=== PATIENT | male | born 1970 | race Caucasian/White ===

== ENCOUNTER 2022-07-15 07:52 | Emergency (ER) | payer MEDICAID ==
[~2022-07-15] VITALS: Ht 167.6 cm; Wt 72.7 kg
[2022-07-15] MEDS: morphine 4 MG/ML inj SYRINge IV ONE (08:15)
--- NOTE | 2022-07-15 08:24 | NUR ---
covid collected at this time
[2022-07-15] MEDS: LORazepam 2 mg/ml vial IV ONE (08:34)
[2022-07-15] MEDS: normal saline 1000ML IV soln IVB ONE (08:34)
[2022-07-15] MEDS: midazolam 1 mg/ML 2ml injection IV ONE ×2 (08:40→09:17)
[2022-07-15] MEDS ORDERED: LIDOcaine 2% 5ml vial 0 MG in normal saline 100ml IV soln 100 ML IV ONE (08:45)
[2022-07-15] MEDS: HYDROmorphone 1 mg/ml syringe IV ONE (08:56)
[2022-07-15 09:10] LABS: BASOPHILS # (AUTO) 0.1 X10'3 (0-0.2); BASOPHILS % (AUTO) 0.9 % (0-1); EOSINOPHILS # (AUTO) 0.2 X10'3 (0-0.9); HEMATOCRIT 40.3 % (42.0-52.0); LYMPHOCYTES # (AUTO) 2.9 X10'3 (1.1-4.8); LYMPHOCYTES % (AUTO) 28.6 % (21-51); MEAN CORPUSCULAR HEMOGLOBIN 30.9 PG (27.0-31.0); MEAN CORPUSCULAR HGB CONC 34.7 g/dL (33.0-36.5); MEAN PLATELET VOLUME 9.7 FL (7.4-10.4); MONOCYTES # (AUTO) 0.9 X10'3 (0-0.9); MONOCYTES % (AUTO) 8.7 % (2-12); NEUTROPHILS # (AUTO) 6.2 X10'3 (1.8-7.7); NEUTROPHILS % (AUTO) 59.8 % (42-75); PLATELET COUNT 230 X10'3 (140-440); RED BLOOD COUNT 4.53 X10'6 (4.70-6.10); RED CELL DISTRIBUTION WIDTH 13.8 % (11.5-14.5); WHITE BLOOD COUNT 10.3 X10'3 (4.5-11.0)
[2022-07-15] MEDS: ketamine 50 mg/ml 10ml vial IM ONE (09:24)
[2022-07-15 09:25] LABS: APTT 30 SECONDS (22-32)
--- NOTE | 2022-07-15 09:25 | NUR ---
Time out at this time, patient and procedure verified. storage battery charger, Dr. Aguilar, Dr. Lang and RT at bedside
--- NOTE | 2022-07-15 09:25 | NUR ---
Dr. Aguilar at bedside. Verbal consent obtained for mod sedation to remove ring from pt's penis. RT called to bedside, Dr. Lang also at bedside. PT placed on 10L NC.
[2022-07-15 09:28] LABS: ALANINE AMINOTRANSFERASE 25 U/L (12-78); ALBUMIN 3.5 G/DL (3.4-5.0); ALKALINE PHOSPHATASE 83 IU/L (46-116); ANION GAP 7 (8-16); ASPARTATE AMINO TRANSFERASE 19 U/L (10-37); BILIRUBIN,TOTAL 0.4 MG/DL (0.1-1.0); BLOOD UREA NITROGEN 15 MG/DL (7-18); BUN/CREATININE RATIO 14.6 (5.4-32.0); CHLORIDE 109 MMOL/L (99-107); CREATININE 1.03 MG/DL (0.60-1.10); GLUCOSE 106 MG/DL (70-104); MAGNESIUM 1.7 MG/DL (1.5-2.4); POTASSIUM 3.5 MMOL/L (3.5-5.1); SODIUM 143 MMOL/L (135-145); TOTAL CARBON DIOXIDE 26.9 MMOL/L (24-32); eGFR 76 ML/MIN
[2022-07-15] MEDS: propofol 1000mg/100ml bottle 0 ML IV ONE (09:35)
[2022-07-15] MEDS: propofol inj 20 ML IV ONE (09:36)
--- NOTE | 2022-07-15 09:49 | NUR ---
50mg IVP propofol given by dr. adam
--- NOTE | 2022-07-15 09:50 | NUR ---
0950- 25mg IVP propfol given by dr. adam 0955- ring removed by Dr. Aguilar, 16fr lopes placed
--- NOTE | 2022-07-15 10:00 | NUR ---
Dr. Aguilar at bedside for removal of ring
[2022-07-15] MEDS: LIDOcaine 2% (20mg/ml) 5ml vial IV ONE (10:01)
--- NOTE | 2022-07-15 10:17 | NUR ---
patient still sedated at this time, vitals wnl
--- NOTE | 2022-07-15 11:52 | NUR ---
patient awake at this time, back to baseline
[2022-07-15 13:47] VITALS: BP 155/97
--- NOTE | 2022-07-15 14:48 | NUR ---
patient has no complaints at this time, resting in bed
--- NOTE | 2022-07-15 15:15 | NUR ---
Per ER MD patient to have 400ml sterile NS irrigated into bladder and lopes removed in order to have patient urinate on his own. lopes removed at this time and paitent at bedside urinating in urinal
[2022-07-15] MEDS ORDERED: CEPH250T PO (15:40)
[2022-07-15] MEDS: ceFAZolin/D5W- 1GM premix 50 ML IV SCH (16:00)
== END 2022-07-15 16:21 | disposition home or self-care (01) ==
LOC: ER 07:52
DX: S30.842A External constriction of penis, initial encounter (principal); Z20.822 Contact with and (suspected) exposure to COVID-19; N48.89 Other specified disorders of penis; F17.200 Nicotine dependence, unspecified, uncomplicated; Z79.2 Long term (current) use of antibiotics; X58.XXXA Exposure to other specified factors, initial encounter; Y93.89 Activity, other specified; Y92.89 Other specified places as the place of occurrence of the external cause; Y99.8 Other external cause status
CPT/HCPCS: 36415; 80053; 83735; 85025; 85610; 85730; 87811; 93005; 96361; 96365; 96375; 96376; 99152; 99153; 99291; 99292; J0690; J1170; J2250; J2270; J2704; J3490; J7030; 96372; A4615

== ENCOUNTER 2023-06-09 19:29 | Inpatient (IN) | payer MEDICAID, MEDICARE ==
[~2023-06-09] VITALS: Ht 175.3 cm; Wt 58.6 kg
[~2023-06-09 19:29] MED LIST: CEPH250T PO
[2023-06-09] MEDS ORDERED: diphenhydrAMINE 50 mg/ml inj ONE (19:30)
[2023-06-09] MEDS ORDERED: haloperidol lactate 5mg/ml inj ONE (19:31)
[2023-06-09] MEDS ORDERED: LORazepam 2 mg/ml vial ONE (19:31)
[2023-06-09] MEDS ORDERED: normal saline 1000ML IV soln IV ONE (19:40)
[2023-06-09] MEDS ORDERED: ipratropium/albuterol 3ml nebule NEB ONE (19:50)
--- NOTE | 2023-06-09 19:55 | NUR ---
Pt unable to come to CT, he is uncoopertive and combative. Nurse will call when patient cam hold still.
[2023-06-09 20:03] LABS: ABG BASE EXCESS -10.1 mmol/L (-2.0-2.0); ABG OXYGEN SATURATION 84.4 % (94-97); ABG PCO2 (T) 26.9 mmHg (35.0-48.0); ABG PO2 (T) 53.3 mmHg (75.0-100.0); FMetHb 0.4 % (0.0-1.5); FO2Hb 83.2 % (94-97); PATIENT TEMPERATURE 36.9; TOTAL HEMOGLOBIN 15.6 G/dl (14.0-17.9)
[2023-06-09 20:18] LABS: BASOPHILS % (AUTO) 0.2 % (0-1); EOSINOPHILS % (AUTO) 0.2 % (0-6); HEMATOCRIT 45.3 % (42.0-52.0); HEMOGLOBIN 15.1 g/dl (14.0-17.9); LYMPHOCYTES # (AUTO) 0.9 X10'3 (1.1-4.8); LYMPHOCYTES % (AUTO) 4.3 % (21-51); MEAN CORPUSCULAR HEMOGLOBIN 29.4 PG (27.0-31.0); MEAN CORPUSCULAR HGB CONC 33.2 g/dL (33.0-36.5); MEAN CORPUSCULAR VOLUME 88.5 FL (78-98); MEAN PLATELET VOLUME 6.9 FL (7.4-10.4); MONOCYTES # (AUTO) 0.6 X10'3 (0-0.9); MONOCYTES % (AUTO) 2.8 % (2-12); NEUTROPHILS # (AUTO) 19.3 X10'3 (1.8-7.7); NEUTROPHILS % (AUTO) 92.5 % (42-75); PLATELET COUNT 360 X10'3 (140-440); RED BLOOD COUNT 5.12 X10'6 (4.70-6.10); RED CELL DISTRIBUTION WIDTH 14.2 % (11.5-14.5); WHITE BLOOD COUNT 20.8 X10'3 (4.5-11.0)
[2023-06-09 20:20] LABS: ALANINE AMINOTRANSFERASE 35 U/L (12-78); ALBUMIN 4.3 G/DL (3.4-5.0); ALBUMIN/GLOBULIN RATIO 1.4 (1.1-1.5); ALKALINE PHOSPHATASE 93 IU/L (46-116); ANION GAP 23 (8-16); ASPARTATE AMINO TRANSFERASE 36 U/L (10-37); BILIRUBIN,TOTAL 0.6 MG/DL (0.1-1.0); BLOOD UREA NITROGEN 23 MG/DL (7-18); BUN/CREATININE RATIO 13.5 (10.0-20.0); CALCIUM 8.9 MG/DL (8.5-10.1); CHLORIDE 105 MMOL/L (99-107); CREATININE 1.71 MG/DL (0.60-1.10); GLUCOSE 109 MG/DL (70-104); POTASSIUM 3.8 MMOL/L (3.5-5.1); SODIUM 144 MMOL/L (135-145); TOTAL CARBON DIOXIDE 16.5 MMOL/L (24-32); TOTAL PROTEIN 7.4 G/DL (6.4-8.2); eGFR 42 ML/MIN
[2023-06-09] MEDS ORDERED: diphenhydrAMINE 50 mg/ml inj IM ONE (20:25)
[2023-06-09] MEDS ORDERED: LORazepam 2 mg/ml vial IM ONE (20:25)
[2023-06-09] MEDS ORDERED: haloperidol lactate 5mg/ml inj IM ONE (20:25)
[2023-06-09 20:26] LABS: LACTIC SEPSIS 9.4 MMOL/L (0.4-2.0)
[2023-06-09 20:28] LABS: ETHANOL < 0.010 GM/DL (0.0-0.010); MAGNESIUM 3.2 MG/DL (1.5-2.4)
[2023-06-09] MEDS ORDERED: normal saline 1000ML IV soln IVB ONE (20:35)
[2023-06-09] MEDS ORDERED: CefTRIAXone 2gm/D5W 50ml BAG 50 ML IV ONE (20:35)
[2023-06-09] MEDS ORDERED: naloxone 2mg/2ml inj IV STA (21:02)
[2023-06-09 21:15] LABS: CREATINE KINASE 374 U/L (39-308)
[2023-06-09 21:22] LABS: CLARITY,URINE SLIGHTLY CLOUDY (Clear); COLOR,URINE YELLOW (Yellow); GLUCOSE, URINE NEGATIVE (Neg); KETONES,URINE NEGATIVE (Neg); LEUKOCYTE ESTERASE ,URINE NEGATIVE (Neg); NITRITES, URINE NEGATIVE (Neg); OCCULT BLOOD,URINE MODERATE (Neg); PH,URINE 5.5 (4.8-8.0); PROTEIN,URINE 100 mg/dl (Neg); UROBILINOGEN,URINE 0.2 E.U/dL (0.2-1.0)
[2023-06-09 21:31] LABS: URINE AMPHETAMINE SCREEN POSITIVE (Neg); URINE BARBITUATE SCREEN NEGATIVE (Neg); URINE BENZODIAZEPINES SCREEN NEGATIVE (Neg); URINE CANNABINOID SCREEN NEGATIVE (Neg); URINE COCAINE SCREEN NEGATIVE (Neg); URINE METHADONE SCREEN NEGATIVE (Neg); URINE OPIATE SCREEN NEGATIVE (Neg); URINE PHENCYCLIDINE SCREEN NEGATIVE (Neg)
[2023-06-09 21:46] LABS: UA COLLECTION TYPE FOLEY CATH
[2023-06-09 21:51] LABS: RBC,URINE NONE SEEN /HPF (0-2)
[2023-06-09 21:52] LABS: BACTERIA,URINE 1+ /HPF (Neg); MUCUS STRANDS FEW /LPF (Neg); RENAL CELLS, URINE FEW /HPF; SQUAMOUS EPITHELIAL CELL,UR NONE SEEN /LPF (FEW)
[2023-06-09 21:55] LABS: AMORPHOUS PHOSPHATES 2+; COARSE GRANULAR CAST 0-3 /LPF (NEGATIVE); FINE GRANULAR CAST 0-3 /LPF (NEGATIVE)
[2023-06-09 21:56] LABS: CELLULAR CAST 0-4 /LPF (NEGATIVE)
[2023-06-09] MEDS ORDERED: rocuronium 10mg/ml inj IV STA (22:05)
[2023-06-09] MEDS ORDERED: etomidate 2mg/ml inj. IV STA (22:05)
--- NOTE | 2023-06-09 22:11 | NUR ---
Manoj Jaramillo [phone] Analisa will be calling back:
[2023-06-09 22:13] VITALS: BP 100/66
--- NOTE | 2023-06-09 22:13 | NUR ---
multiple staff in to change him, he is full of liquid bm. Pants thrown out. Cleaned out pockets and belt, inhaler a chacon put into a clothes bag. So much liquid bm that a rectal tube was successfully placed per Lashonda Greenfield RN. Dr Leonard in assisting with cleaning him. Linen change x 3 until rectal tube placed. Sample collected. Pt doesn't respond other than clenching and appearing to posture. RT notified and MD preparing to intubate
--- NOTE | 2023-06-09 22:22 | NUR ---
Analisa Padilla: [phone] His girlfriend: call anytime She states she is in [facility] right now, she stopped by his house this morning and he wasn't home. She states he has severe COPD only 30% of his lung capacity. Uses 3 inhalers. Not on any antibiotics this past month. Does know he was placed on prednisone recently.
[2023-06-09 22:28] LABS: ABG BASE EXCESS -6.6 mmol/L (-2.0-2.0); ABG HCO3 19.4 mmol/L (22.0-26.0); ABG OXYGEN SATURATION 99.2 % (94-97); ABG PCO2 (T) 40.4 mmHg (35.0-48.0); ABG PO2 (T) 340.4 mmHg (75.0-100.0); ALLEN'S TEST POSITIVE; FCOHb 0.6 % (0.0-3.9); FMetHb 0.5 % (0.0-1.5); FO2Hb 98.1 % (94-97); PATIENT TEMPERATURE 36.9; PEEP 5 cm H2O; RESPIRATORY RATE 20 b/min; TIDAL VOLUME 450 mL; TOTAL HEMOGLOBIN 14.6 G/dl (14.0-17.9)
[2023-06-09] MEDS ORDERED: levetiracetam inj 1,000 MG in normal saline 100ml IV soln 90 ML IV STA (22:36)
[2023-06-09] MEDS ORDERED: levetiracetam inj 1,000 MG in normal saline 100ml IV soln 100 ML IV STA (22:40)
--- NOTE | 2023-06-09 22:44 | NUR ---
Friend called in. He was in [place] at a house since last night he was really having alot of trouble breathing. Today alot of albuterol as he continued to having trouble breathing and he was also doing nebulizer treatment. She thinks he wasn't doing it right, he was just 'hitting it' instead of having it in his mouth continually. She states he didn't have any diarrhea at her house today. They all ate the same thing and everyone else is fine. [phone]: Camille
--- NOTE | 2023-06-09 22:51 | NUR ---
d/c 18fr lopes and placed 16fr temp lopes.
[2023-06-09] MEDS ORDERED: propofol 1000mg/100ml bottle 100 ML IV ONE (23:31)
[2023-06-09] MEDS: propofol 1000mg/100ml bottle 100 ML IV SCH ×2 (23:48→23:49)
[2023-06-09] MEDS ORDERED: ondansetron/PF 4mg/2ml inj IV PRN (23:50)
[2023-06-09] MEDS ORDERED: acetaminophen 325mg tablet PO PRN (23:50)
[2023-06-10] VITALS (31 sets, daily range): BP systolic 93–169; BP diastolic 65–104
[2023-06-10 00:14] LABS: TRIGLYCERIDES 62 MG/DL (20-135)
[2023-06-10 00:59] LABS: OCCULT BLOOD STOOL POSITIVE (Neg)
[2023-06-10 02:39] LABS: ALANINE AMINOTRANSFERASE 36 U/L (12-78); ALBUMIN 3.8 G/DL (3.4-5.0); ALBUMIN/GLOBULIN RATIO 1.4 (1.1-1.5); ALKALINE PHOSPHATASE 79 IU/L (46-116); ANION GAP 16 (8-16); ASPARTATE AMINO TRANSFERASE 53 U/L (10-37); BILIRUBIN,TOTAL 0.5 MG/DL (0.1-1.0); BLOOD UREA NITROGEN 20 MG/DL (7-18); BUN/CREATININE RATIO 15.6 (10.0-20.0); CALCIUM 7.9 MG/DL (8.5-10.1); CHLORIDE 110 MMOL/L (99-107); CREATININE 1.28 MG/DL (0.60-1.10); GLUCOSE 96 MG/DL (70-104); MAGNESIUM 2.5 MG/DL (1.5-2.4); POTASSIUM 3.5 MMOL/L (3.5-5.1); SODIUM 148 MMOL/L (135-145); TOTAL CARBON DIOXIDE 22.2 MMOL/L (24-32); TOTAL PROTEIN 6.6 G/DL (6.4-8.2); eGFR 59 ML/MIN
[2023-06-10 02:48] LABS: BASOPHILS % (AUTO) 0.1 % (0-1); EOSINOPHILS % (AUTO) 0.1 % (0-6); HEMATOCRIT 45.6 % (42.0-52.0); HEMOGLOBIN 15.1 g/dl (14.0-17.9); LYMPHOCYTES # (AUTO) 1.4 X10'3 (1.1-4.8); LYMPHOCYTES % (AUTO) 6.6 % (21-51); MEAN CORPUSCULAR HEMOGLOBIN 29.6 PG (27.0-31.0); MEAN CORPUSCULAR VOLUME 89.6 FL (78-98); MEAN PLATELET VOLUME 7.1 FL (7.4-10.4); MONOCYTES # (AUTO) 1.5 X10'3 (0-0.9); MONOCYTES % (AUTO) 6.8 % (2-12); NEUTROPHILS # (AUTO) 18.6 X10'3 (1.8-7.7); NEUTROPHILS % (AUTO) 86.4 % (42-75); PLATELET COUNT 286 X10'3 (140-440); RED BLOOD COUNT 5.09 X10'6 (4.70-6.10); RED CELL DISTRIBUTION WIDTH 14.5 % (11.5-14.5); WHITE BLOOD COUNT 21.5 X10'3 (4.5-11.0)
[2023-06-10 03:08] LABS: ABG BASE EXCESS -5.8 mmol/L (-2.0-2.0); ABG HCO3 19.2 mmol/L (22.0-26.0); ABG OXYGEN SATURATION 96.9 % (94-97); ABG PCO2 (T) 37.8 mmHg (35.0-48.0); ABG PO2 (T) 102.1 mmHg (75.0-100.0); ALLEN'S TEST POSITIVE; FCOHb 0.1 % (0.0-3.9); FMetHb 0.5 % (0.0-1.5); FO2Hb 96.3 % (94-97); PATIENT TEMPERATURE 37.9; PEEP 5 cm H2O; RESPIRATORY RATE 20 b/min; TIDAL VOLUME 450 mL; TOTAL HEMOGLOBIN 15.6 G/dl (14.0-17.9)
[2023-06-10] MEDS: propofol 1000mg/100ml bottle 100 ML IV SCH (06:42)
[2023-06-10] MEDS: piperacillin/tazo 3.375gm/50ml 50 ML IV SCH ×2 (07:14→16:11)
[2023-06-10] MEDS: enoxaparin 40mg/0.4ml syringe SUBCUT SCH (07:16)
[2023-06-10] MEDS: rifaximin 550mg tablet PO SCH ×2 (07:16→19:42)
[2023-06-10] MEDS: pantoprazole 40mg Tablet.DR PO SCH (07:16)
[2023-06-10] MEDS ORDERED: flumazenil 0.1 mg/ml inj. IV ONE (08:00)
[2023-06-10] MEDS ORDERED: etomidate 2mg/ml inj. ONE (08:00)
[2023-06-10 08:40] LABS: C DIFF SPECIMEN=DIARRHEA? ACCEPTABLE; C DIFFICILE TOXINS A&B NEGATIVE (Neg)
--- NOTE | 2023-06-10 10:05 | NUR ---
Dr. Wilson in to see pt. Notified of pin point pupils, agitation when aroused and low urine output.
--- NOTE | 2023-06-10 10:08 | NUR ---
Initial: Pt intubated admit DX toxic and metabolic encephalopathy positive for meth, sepsis possibly from aspiration PNA, acute respiratory failure, elevated lactic acid possibly from seizure, acute renal failure, and diarrhea c.diff negative per EMR. Currently NPO w/ OG in place MAP 83 this AM; TF recs below in case prolonged intubation considering Propofol currently running at 17.49ml/hr in EMR providing 462 kcals/day. Rectal tube -200ml since admit per EMR. Will continue to follow. Rec: 1. IF TF considering Propofol at 17.49ml/hr providing 462 kcals/day; Vital HP at 50ml/hr would provide 1200ml volume/day, 1200 kcals, 1003ml water, and 105g protein. 2. IF TF; additional water flush 100ml Q4H 3. IF TF; PALB Q / 4. bowel care per rx 5. daily scaled wt 6. upon extubation; advance diet as medically indicated to regular Addendum: 06/10/23 at [address] Amended: Links added.
[2023-06-10] MEDS: dextrose 5%-water 1,000 ML IV SCH ×2 (10:11→22:11)
[2023-06-10] MEDS ORDERED: dextrose 5%-water 1,000 ML IV SCH (11:40)
--- NOTE | 2023-06-10 11:49 | NUR ---
organic section technical lead paged for cont. EEG. Will be here in 30 mins approx.
[2023-06-10] MEDS: CefTRIAXone/D5W-Rocephin 1gm 50 ML IV SCH (12:46)
--- NOTE | 2023-06-10 12:51 | NUR ---
EEG being set up now.
[2023-06-10] MEDS: lactulose 20gm/30ml cup OGT SCH ×2 (13:21→19:42)
--- NOTE | 2023-06-10 15:16 | NUR ---
Pt. awake and following commands. Dr. Wilson aware. Pt. placed on CPAP on the vent.
--- NOTE | 2023-06-10 15:56 | NUR ---
Pt. extubated to nasal canula after obtaining passing weaning parameters and being on CPAP vent mode for one hour. Pt. stable.
--- NOTE | 2023-06-10 17:27 | NUR ---
Dr. Wilson aware of pt's high BP.
[2023-06-10] MEDS: acetaminophen 325mg tablet PO PRN (22:41)
[2023-06-11] VITALS (16 sets, daily range): BP systolic 105–157; BP diastolic 63–104
[2023-06-11] MEDS: piperacillin/tazo 3.375gm/50ml 50 ML IV SCH ×2 (00:09→08:09)
[2023-06-11] MEDS: lactulose 20gm/30ml cup OGT SCH ×2 (01:26→08:07)
[2023-06-11] MEDS ORDERED: potassium Cl 40MEQ/1/2NS 520ml 520 ML IV PRN ×2 (03:00)
[2023-06-11] MEDS: K, MAG and/or Phos replacement - Verify level? MC SCH ×2 (03:00→08:35)
[2023-06-11] MEDS ORDERED: magnesium Cl slow-release 64mg tablet PO PRN (03:00)
[2023-06-11] MEDS ORDERED: magnesium 4gm in 100ml NS 100 ML IV PRN (03:00)
[2023-06-11] MEDS ORDERED: magnesium 2GM in 50ml NS 50 ML IV PRN (03:00)
[2023-06-11] MEDS ORDERED: potassium Cl 20 mEq SR tablet PO PRN (03:00)
[2023-06-11 06:13] LABS: ALANINE AMINOTRANSFERASE 32 U/L (12-78); ALBUMIN 3.1 G/DL (3.4-5.0); ALKALINE PHOSPHATASE 69 IU/L (46-116); ANION GAP 14 (8-16); ASPARTATE AMINO TRANSFERASE 50 U/L (10-37); BLOOD UREA NITROGEN 16 MG/DL (7-18); CALCIUM 7.8 MG/DL (8.5-10.1); CHLORIDE 104 MMOL/L (99-107); GLUCOSE 114 MG/DL (70-104); MAGNESIUM 2.2 MG/DL (1.5-2.4); PHOSPHORUS 2.8 MG/DL (2.3-4.5); SODIUM 137 MMOL/L (135-145); TOTAL CARBON DIOXIDE 19.2 MMOL/L (24-32); TOTAL PROTEIN 6.1 G/DL (6.4-8.2); eGFR 78 ML/MIN
[2023-06-11 06:30] LABS: BASOPHILS % (AUTO) 0.2 % (0-1); EOSINOPHILS # (AUTO) 0.1 X10'3 (0-0.9); EOSINOPHILS % (AUTO) 0.4 % (0-6); HEMATOCRIT 47.7 % (42.0-52.0); HEMOGLOBIN 15.7 g/dl (14.0-17.9); LYMPHOCYTES # (AUTO) 2.3 X10'3 (1.1-4.8); LYMPHOCYTES % (AUTO) 10.8 % (21-51); MEAN CORPUSCULAR HEMOGLOBIN 29.7 PG (27.0-31.0); MEAN CORPUSCULAR HGB CONC 32.9 g/dL (33.0-36.5); MEAN CORPUSCULAR VOLUME 90.1 FL (78-98); MEAN PLATELET VOLUME 7.4 FL (7.4-10.4); MONOCYTES # (AUTO) 1.3 X10'3 (0-0.9); MONOCYTES % (AUTO) 6.1 % (2-12); NEUTROPHILS # (AUTO) 17.6 X10'3 (1.8-7.7); NEUTROPHILS % (AUTO) 82.5 % (42-75); PLATELET COUNT 216 X10'3 (140-440); RED CELL DISTRIBUTION WIDTH 14.5 % (11.5-14.5); WHITE BLOOD COUNT 21.4 X10'3 (4.5-11.0)
--- NOTE | 2023-06-11 06:31 | NUR ---
Patient in room ICU 2044. I have received report from Dayana SAXENA and had the opportunity to ask questions and assume patient care.
[2023-06-11] MEDS: pantoprazole 40mg Tablet.DR PO SCH (08:07)
[2023-06-11] MEDS: rifaximin 550mg tablet PO SCH (08:07)
[2023-06-11] MEDS: enoxaparin 40mg/0.4ml syringe SUBCUT SCH (08:08)
[2023-06-11] MEDS: CefTRIAXone/D5W-Rocephin 1gm 50 ML IV SCH (08:09)
--- NOTE | 2023-06-11 10:45 | NUR ---
Rounds note, patient presented by Dr. Mirza. Labs, lines, and drips addressed. Abx coverage to be changed by MD, patient has orders to transfer off this floor no tele monitor. D/C D5w and encourage PO intake. D/C lopes and wean off O2
--- NOTE | 2023-06-11 10:49 | NUR ---
F/u 06/11: Pt extubated yesterday advanced to clear liquids now to start pureed/thin WL today due to lack of teeth per [employer] recs. Pt ate all of clears per RN at rounds. Will monitor for PO trends and nutrition intervention needs. Rec: 1. Continue pureed/thin diet per [employer]; advance as medically indicated to regular 2. monitor PO trends for ONS needs 3. weekly wt Addendum: 06/11/23 at [address] Amended: Links added.
[2023-06-11] MEDS ORDERED: BUDE10.26 IH (15:08)
[2023-06-11] MEDS ORDERED: ALBU17AE26 IH (15:09)
[2023-06-11] MEDS ORDERED: TIOT4MIS2 INH (15:09)
--- NOTE | 2023-06-11 15:17 | NUR ---
lopes D/C balloon intact
[2023-06-11] MEDS: DOXYCYCLINE 100MG CAPSULE PO SCH (17:35)
[2023-06-11] MEDS ORDERED: albuterol 2.5 MG/3 ML nebule NEB PRN (18:10)
[2023-06-11] MEDS: acetaminophen 325mg tablet PO PRN (20:21)
[2023-06-11] MEDS: levetiracetam 250mg tablet PO SCH (20:22)
[2023-06-11] MEDS: budesonide 0.5mg/2ml UD nebule IH SCH (20:45)
[2023-06-11] MEDS: ipratropium/albuterol 3ml nebule NEB SCH (20:45)
[2023-06-11] MEDS ORDERED: ipratropium 0.5 MG/2.5ML nebule NEB SCH (21:00)
[2023-06-11] MEDS ORDERED: albuterol 2.5 MG/3 ML nebule NEB SCH (21:00)
[2023-06-11] MEDS: lactulose 20gm/30ml cup PO SCH (23:36)
[2023-06-12] MEDS: ipratropium/albuterol 3ml nebule NEB SCH ×2 (02:39→09:22)
[2023-06-12 03:54] VITALS: BP 132/87
--- NOTE | 2023-06-12 04:31 | NUR ---
rectal tube d/c'd after balloon deflated - pt still denies need to void - will continue to monitor
[2023-06-12 06:18] LABS: BASOPHILS % (AUTO) 0.2 % (0-1); EOSINOPHILS # (AUTO) 0.1 X10'3 (0-0.9); EOSINOPHILS % (AUTO) 0.8 % (0-6); HEMATOCRIT 42.2 % (42.0-52.0); HEMOGLOBIN 14.1 g/dl (14.0-17.9); LYMPHOCYTES # (AUTO) 1.7 X10'3 (1.1-4.8); LYMPHOCYTES % (AUTO) 10.8 % (21-51); MEAN CORPUSCULAR HEMOGLOBIN 29.3 PG (27.0-31.0); MEAN CORPUSCULAR HGB CONC 33.4 g/dL (33.0-36.5); MEAN CORPUSCULAR VOLUME 87.8 FL (78-98); MEAN PLATELET VOLUME 7.3 FL (7.4-10.4); MONOCYTES # (AUTO) 0.9 X10'3 (0-0.9); MONOCYTES % (AUTO) 5.4 % (2-12); NEUTROPHILS # (AUTO) 13.4 X10'3 (1.8-7.7); NEUTROPHILS % (AUTO) 82.8 % (42-75); PLATELET COUNT 259 X10'3 (140-440); RED BLOOD COUNT 4.81 X10'6 (4.70-6.10); RED CELL DISTRIBUTION WIDTH 14.2 % (11.5-14.5); WHITE BLOOD COUNT 16.2 X10'3 (4.5-11.0)
[2023-06-12 06:28] LABS: ALANINE AMINOTRANSFERASE 29 U/L (12-78); ALBUMIN 2.9 G/DL (3.4-5.0); ALKALINE PHOSPHATASE 62 IU/L (46-116); ANION GAP 12 (8-16); ASPARTATE AMINO TRANSFERASE 24 U/L (10-37); BILIRUBIN,TOTAL 0.6 MG/DL (0.1-1.0); BLOOD UREA NITROGEN 11 MG/DL (7-18); BUN/CREATININE RATIO 12.9 (10.0-20.0); CALCIUM 8.1 MG/DL (8.5-10.1); CHLORIDE 103 MMOL/L (99-107); CREATININE 0.85 MG/DL (0.60-1.10); GLUCOSE 82 MG/DL (70-104); MAGNESIUM 1.6 MG/DL (1.5-2.4); POTASSIUM 3.1 MMOL/L (3.5-5.1); SODIUM 139 MMOL/L (135-145); TOTAL CARBON DIOXIDE 23.9 MMOL/L (24-32); TOTAL PROTEIN 5.9 G/DL (6.4-8.2); eGFR > 90 ML/MIN
--- NOTE | 2023-06-12 06:45 | NUR ---
Problems reprioritized. Patient report given, questions answered & plan of care reviewed with Dayana SAXENA.
[2023-06-12 08:00] VITALS: BP 131/87
[2023-06-12] MEDS: lactulose 20gm/30ml cup PO SCH (08:00)
--- NOTE | 2023-06-12 08:03 | NUR ---
spoke to Dr. Gomez in regards to patients morning meds, stated to stop lactulose
[2023-06-12] MEDS: levetiracetam 250mg tablet PO SCH (08:11)
[2023-06-12] MEDS: pantoprazole 40mg Tablet.DR PO SCH (08:11)
[2023-06-12] MEDS: DOXYCYCLINE 100MG CAPSULE PO SCH (08:11)
[2023-06-12] MEDS: enoxaparin 40mg/0.4ml syringe SUBCUT SCH (08:11)
[2023-06-12] MEDS: K, MAG and/or Phos replacement - Verify level? MC SCH (08:35)
[2023-06-12] MEDS: budesonide 0.5mg/2ml UD nebule IH SCH (09:22)
[2023-06-12 12:00] VITALS: BP 133/71
--- NOTE | 2023-06-12 13:19 | NUR ---
WOC note: WOC in for skin assessment. Leesa, primary nurse at the bedside stated the wound care consult should be canceled. The patient is ambulatory and has no skin breakdown noted. I did look at his buttocks when he was up with PT and indeed, he has no breakdown, rashes or moisture. WOC consult canceled.
[2023-06-12] MEDS ORDERED: DOXY-224 PO (13:39)
[2023-06-12] MEDS ORDERED: LEVE500T PO (13:39)
[2023-06-12] MEDS ORDERED: POTA-207 PO (13:39)
--- NOTE | 2023-06-12 14:27 | NUR ---
PIV x2 d/c canula intact, patients discharge papers signed and copies obtained for permanent chart records
[2023-06-13 18:32] LABS: HEPATITIS C VIRUS ANTIBODY Non Reactive (Non Reactive)
== END 2023-06-12 14:18 | disposition home or self-care (01) | DRG 720 ==
LOC: ER 19:30 → EDBD 23:50 → ED HOLD 23:50 → ICU 2S 06-10 00:11
PROVIDERS: ADMIT Surgery Surgical Critical Care; ATTEND Surgery Surgical Critical Care
PROC: 5A1935Z Respiratory Ventilation, Less than 24 Consecutive Hours (ICD-10-PCS; principal; 2023-06-10)
PROC: 0BH18EZ Insertion of Endotracheal Airway into Trachea, Via Natural or Artificial Opening Endoscopic (ICD-10-PCS; 2023-06-10)
DX: A41.9 Sepsis, unspecified organism (principal); J96.01 Acute respiratory failure with hypoxia; J69.0 Pneumonitis due to inhalation of food and vomit; N17.0 Acute kidney failure with tubular necrosis; G92.8 Other toxic encephalopathy; E86.0 Dehydration; E87.0 Hyperosmolality and hypernatremia; G40.909 Epilepsy, unspecified, not intractable, without status epilepticus; J44.1 Chronic obstructive pulmonary disease with (acute) exacerbation; K74.60 Unspecified cirrhosis of liver
CPT/HCPCS: 36415; 36600; 70450; 71045; 80053; 80305; 80320; 81001; 82140; 82272; 82550; 82803; 82948; 83605; 83735; 84100; 84145; 84478; 84484; 85018; 85025; 86803; 87040; 87045; 87046; 87070; 87081; 87088; 87324; 87449; 87522; 89055; 92508; 92616; 94002; 94640; 94760; 94799; 95813; 97161; 97530; 99285; A4314; A4615; A6213; A6250; G0378; J0696; J1200; J1630; J1650; J1953; J2060; J2310; J2543; J2704; J3490; J7030; J7040; J7070